=== PATIENT | male | born 2000 | race Caucasian/White ===

== ENCOUNTER 2023-12-16 21:13 | Emergency (ER) | payer SELFPAY ==
[2023-12-16 22:22] LABS: CORONAVIRUS COVID-19 NAA POSITIVE (NEGATIVE); INFLUENZA A NAA NEGATIVE (NEGATIVE); RESPIRATORY SYNCYTIAL VIR NAA NEGATIVE (NEGATIVE)
== END 2023-12-16 22:41 | disposition home or self-care (01) ==
LOC: JD.ED 21:13
DX: U07.1 COVID-19 (principal)
CPT/HCPCS: 0241U; 71046; 99285